=== PATIENT | male | born 1980 | race Two or more races ===

== ENCOUNTER 2022-02-08 15:51 | Emergency (ER) | payer MEDICAID, OTHER ==
[~2022-02-08] VITALS: Ht 167.6 cm; Wt 59.0 kg
[2022-02-08] MEDS ORDERED: ROCURONIUM 10MG/ML 10ML VIAL IV ONE ×2 (16:02→16:15)
[2022-02-08] MEDS ORDERED: ETOMIDATE (2MG/ML) 20ML VIAL IV ONE ×2 (16:02→16:15)
[2022-02-08 16:09] VITALS: BP 176/143
== END 2022-02-08 21:43 ==
LOC: ER 15:51
DX: I46.9 Cardiac arrest, cause unspecified (principal); R41.82 Altered mental status, unspecified; I47.20 Ventricular tachycardia, unspecified
CPT/HCPCS: 31500; 92950; 92960; 99291